=== PATIENT | male | born 1965 | race Caucasian/White ===

== ENCOUNTER → 2023-03-11 08:54 | Outpatient (BNVA) | payer OTHER, SELFPAY | PROVIDERS: PCP Physician Assistant Medical; Visit Provider Nurse Practitioner Family | DX: Z13.89 Encounter for screening for other disorder (principal) ==

== ENCOUNTER 2023-04-11 08:28 | Outpatient (REF) | payer OTHER, SELFPAY ==
--- NOTE | ~2023-04-11 | US_ITS ---
EXAMINATION: US RETROPERITONEAL COMPLETE (RENAL) CLINICAL INFORMATION: Benign prostatic hyperplasia with lower urinary tract symptoms. COMPARISON: None available. TECHNIQUE: Real-time imaging of the kidneys and bladder. FINDINGS: RIGHT KIDNEY: 10.0 x 5.4 x 4.9 cm (SAG x AP x TRV). The kidney is normal in size, contour, and echogenicity. Renal cortical thickness is normal. There are a few small simple appearing cysts of the right kidney for which no follow-up imaging is usually warranted, largest measuring 1.1 cm. There is a 3 mm nonobstructing upper pole calculus. There is no hydronephrosis. LEFT KIDNEY: 10.7 x 5.1 x 4.6 cm (SAG x AP x TRV). The kidney is normal in size, contour, and echogenicity. Renal cortical thickness is normal. 6 mm nonobstructing mid pole calculus. No hydronephrosis. BLADDER: The bladder is well-distended. There is mild bladder wall thickening measuring up to 7 mm, nonspecific. Bilateral ureteral jets are demonstrated. Prevoid bladder volume is 248 mL. Postvoid bladder volume is 47.7 mL. Prostate volume 17 mL. US/US retroperitoneal comp IMPRESSION: 1. Tiny nonobstructing bilateral renal calculi. No hydronephrosis of either kidney. 2. Prominent post void bladder residual of 45 mL. 3. Mild bladder wall thickening measuring up to 7 mm, nonspecific.
[2023-04-11 09:44] LABS: Prostate Specific Antigen 0.97 ng/mL (<0.05-4.0)
== END 2023-04-11 08:29 | disposition home or self-care (01) ==
LOC: HO.US 08:28
PROVIDERS: PCP Physician Assistant Medical; Visit Provider Nurse Practitioner Family
DX: N40.1 Benign prostatic hyperplasia with lower urinary tract symptoms (principal); R39.11 Hesitancy of micturition; N50.819 Testicular pain, unspecified; Z12.5 Encounter for screening for malignant neoplasm of prostate
CPT/HCPCS: 36415; 76770; 84153

== ENCOUNTER → 2023-04-21 08:34 | Outpatient (BNVA) | payer OTHER, SELFPAY | PROVIDERS: PCP Physician Assistant Medical; Visit Provider Nurse Practitioner Family | DX: N40.1 Benign prostatic hyperplasia with lower urinary tract symptoms (principal); N50.819 Testicular pain, unspecified; R39.11 Hesitancy of micturition; N20.0 Calculus of kidney | CPT/HCPCS: 51798 ==

== ENCOUNTER 2024-04-12 07:58 | Outpatient (REF) | payer OTHER, SELFPAY ==
[2024-04-12 11:25] LABS: Prostate Specific Antigen 0.76 ng/mL (<0.05-4.0)
== END 2024-04-12 07:59 | disposition home or self-care (01) ==
LOC: HO.10HDL 07:58
PROVIDERS: Visit Provider Nurse Practitioner Family
DX: N40.1 Benign prostatic hyperplasia with lower urinary tract symptoms (principal); R39.11 Hesitancy of micturition; Z12.5 Encounter for screening for malignant neoplasm of prostate
CPT/HCPCS: 36415; 84153

== ENCOUNTER 2024-04-12 13:31 | Outpatient (REF) | payer OTHER, SELFPAY ==
--- NOTE | ~2024-04-12 | US_ITS ---
EXAMINATION: US RETROPERITONEAL LIMITED (RENAL ONLY) CLINICAL INFORMATION: Calculus of kidney. COMPARISON: Ultrasound retroperitoneal 04/11/2023. TECHNIQUE: Real-time imaging of the kidneys. FINDINGS: RIGHT KIDNEY: 10.9 x 5.4 x 5.1 cm (SAG x AP x TRV). The kidney is normal in size, contour, and echogenicity. Renal cortical thickness is normal. No renal calculi or hydronephrosis. There are parapelvic cysts. Largest measuring 1.2 cm. No follow-up imaging is recommended for simple renal cyst. LEFT KIDNEY: 10.8 x 5.3 x 4.3 cm (SAG x AP x TRV). The kidney is normal in size, contour, and echogenicity. Renal cortical thickness is normal. No focal parenchymal lesions or hydronephrosis. Nonobstructive mid pole stone measuring 0.9 cm. US/US renal BI IMPRESSION: Nonobstructive stone mid pole left kidney measuring 0.9 cm. No hydronephrosis.
== END 2024-04-12 13:32 | disposition home or self-care (01) ==
LOC: HO.US 13:31
PROVIDERS: PCP Physician Assistant Medical; Visit Provider Nurse Practitioner Family
DX: N20.0 Calculus of kidney (principal)
CPT/HCPCS: 76775

== ENCOUNTER 2024-04-17 08:24 | Outpatient (AMB) | payer OTHER, SELFPAY ==
--- NOTE | 2024-04-17 08:34 | MHC.OFFVIS ---
Intake Visit Reasons: 1y/US/labs Intake Note: Patient is present for follow up Bilateral Nephrolithiasis, ultrasound, and PSA lab results Imaging Completed: 04/12/24 PSA: 0.76 Urology Medications: none Blood Thinner: none Smash Fixer Required: No Accompanied by: Self / Same As Patient Allergies bee stings Allergy (Uncoded 04/17/24 23:04) swelling, edema Medication List - Last Reconciled 04/17/24 by ESSIE Chung No Known Home Meds HPI Comments Details: Shoaib is a pleasant 58-year-old male patient of Dr. Delvalle. He has a past medical history of degenerative disc disease, and cervical stenosis of spinal canal. He presents to the office today for follow-up of his nephrolithiasis and renal cyst. Recent renal imaging results reviewed with the patient today. Right kidney with no hydronephrosis or renal calculi. There are simple peripelvic cysts largest measuring approximately 1.2 cm. That require no follow-up imaging per radiology report. Left kidney with no lesions or hydronephrosis. Nonobstructing mid pole stone measuring approximately 0.9 cm. Recent PSA results reviewed with the patient today as noted and trended below. He currently denies any bothersome urinary issues or concerns. He reports right-sided testicular pain he had been experiencing has since subsided as he has been following up with field care coordinator and was noted to have a right-sided hip dislocation and since this has been relocated/addressed he has noted significant improvement in right-sided testicular pain he had been experiencing. In office urinalysis results reviewed with the patient today. PH 5.5. Discussed and stressed the importance of drinking water daily in relation to nephrolithiasis. Discussed further intervention with surveillance monitoring verses KUB for further assessment evaluation of potential ESWL. He otherwise denies urinary urgency, urinary frequency, incontinence, nocturia, hematuria, dysuria, foul smelling urine, changes to urinary stream, flank pain, fever, and or chills. PSA 04/19 1.0, 04/20 0.8 PFSH Medical History DDD (degenerative disc disease), cervical Elevated blood-pressure reading, without diagnosis of hypertension Neuroforaminal stenosis of cervical spine Cervical stenosis of spinal canal Surgical History History of neck surgery Review of Systems Const Reports no additional complaints Eyes Reports no additional complaints ENT Reports no additional complaints Card Reports no additional complaints Resp Reports no additional complaints GI Reports no additional complaints Reports as per HPI Musc Reports as per HPI Neuro Reports no additional complaints Psych Reports no additional complaints Endo Reports no additional complaints Rehan/Lymph Reports no additional complaints Aller/Immun Reports no additional complaints Physical Exam Const General: cooperative, healthy appearing, comfortable, no acute distress, well developed, alert and awake Orientation/consciousness: patient oriented x3 Limitations: no limitations HEENT Head: Yes normal to inspection, Yes normocephalic and Yes atraumatic Ears: hearing grossly normal bilaterally Eyes General: appearance normal, both eyes and all related structures Neck Neck: Yes normal visual inspection and Yes trachea midline Chest Chest palpation & inspection: normal inspection of the chest Resp Effort & Inspection: normal respiratory effort and able to speak in complete sentences Cardio Rate: regular rate GI Inspection: Yes normal to inspection General: Yes no CVA tenderness Back/Spine/Pelvis Back: no CVA tenderness Skin General skin exam: no rashes or lesions noted Neuro General: patient oriented x3 Extrem General: Yes normal to inspection Psych Appearance: grossly normal and well kempt Mental Status: mental status grossly normal Speech and movement: Normal speech and movement present and Clear speech present Affect: normal affect Attitude: cooperative Thought process: Normal thought process present Thought content: Normal thought content present Insight: Good insight present (Psych) Judgement: Good judgement present (Psych) Results AMB Urinalysis, Automated UA Leukoctes 15 Ulysses/uL Last Edit by Ewa Gilliland on 04/17/24 08:52 UA Nitrite Negative Last Edit by [employer] on 04/17/24 08:52 UA Urobilinogen 0.2 mg/dL Last Edit by [employer] on 04/17/24 08:52 UA Protein 15 mg/dL Last Edit by Josey [employer] Gilliland on 04/17/24 08:52 UA pH 5.5 Last Edit by Josey Ellis [employer] Gilliland on 04/17/24 08:52 UA Blood 10 Jonathon/uL Last Edit by [employer] on 04/17/24 08:52 UA Specific [place] 1.025 Last Edit by [employer] on 04/17/24 08:52 UA Ketone Positive Last Edit by [employer] on 04/17/24 08:52 UA Bilirubin 1 mg/dL Last Edit by [employer] on 04/17/24 08:52 UA Glucose 0 mg/dL Last Edit by [employer] on 04/17/24 08:52 Results Reviewed Results Reviewed: Laboratory Last Values Urine pH (Auto) 5.5 04/17/24 08:37 Specific [place] (Auto) 1.025 04/17/24 08:37 Urine Protein (Auto) 15 mg/dL 04/17/24 08:37 Glucose (UA)(Auto) 0 mg/dL 04/17/24 08:37 Urine Ketones (Auto) Positive 04/17/24 08:37 Urine Blood (Auto) 10 Jonathon/uL 04/17/24 08:37 Urine Nitrite (Auto) Negative 04/17/24 08:37 Urine Bilirubin (Auto) 1 mg/dL 04/17/24 08:37 Urine Urobilinogen (Auto) 0.2 mg/dL 04/17/24 08:37 Leukocyte Esterase (Auto) 15 Ulysses/uL 04/17/24 08:37 Date of Service: 04/12/24 FINDINGS: RIGHT KIDNEY: 10.9 x 5.4 x 5.1 cm (SAG x AP x TRV). The kidney is normal in size, contour, and echogenicity. Renal cortical thickness is normal. No renal calculi or hydronephrosis. There are parapelvic cysts. Largest measuring 1.2 cm. No follow-up imaging is recommended for simple renal cyst. LEFT KIDNEY: 10.8 x 5.3 x 4.3 cm (SAG x AP x TRV). The kidney is normal in size, contour, and echogenicity. Renal cortical thickness is normal. No focal parenchymal lesions or hydronephrosis. Nonobstructive mid pole stone measuring 0.9 cm. IMPRESSION: Nonobstructive stone mid pole left kidney measuring 0.9 cm. No hydronephrosis. Assessment & Plan Assessment & Plan (1) Renal cyst: Code(s): N28.1 - Cyst of kidney, acquired Category: Medical (2) Nephrolithiasis: Code(s): N20.0 - Calculus of kidney Category: Medical (3) Bladder wall thickening: Code(s): N32.89 - Other specified disorders of bladder Category: Medical Plan In office urinalysis results reviewed with the patient today; as noted above. Recent PSA results reviewed with the patient today; as noted above. Recent renal imaging results reviewed with the patient today; as noted above. Discussed, educated, and stressed the importance of drinking plenty of water daily. Discussed further metabolic workup with 24 hour urine collection and labs verses surveillance monitoring verses CT KUB for further assessment of potential ESWL; risks and benefits of these interventions were discussed. Patient currently denies any bothersome urinary issues or concerns. He reports be happy with current voiding parameters. Will obtain renal ultrasound in 6 months; will continue with surveillance monitoring at this time per patient request. Follow-up in 6 months with imaging to be completed prior; or sooner with any issues, concerns, and or questions. Orders: Orders AMB Urinalysis Automated 04/17/24 Z13.9 - Encounter for screening, unspecified US renal BI 6 Months N20.0 - Calculus of kidney Patient Instructions: The patient had an opportunity to ask questions regarding the treatment plan. All questions were answered. Physical exam, labs, and imaging were discussed and reviewed in detail. As well as risks, benefits, and discussion of treatment choices. No major barriers to understanding were identified. The patient expressed understanding and agreement with the above treatment plan. The patient was made aware they should contact our office by phone for worsening of their current condition, the appearance of new symptoms, or with any questions or concerns. Compliance is encouraged with any medications and follow up testing that is ordered. It is a privilege to be allowed the opportunity to participate in? your urological care.? Again, if you have any questions or concerns If you have any questions or concerns please do not hesitate to contact me. The office is [phone]. This note is constructed using voice recognition software. While every effort has been made to ensure accuracy liquor clerk errors may have been included. Yours sincerely, ESSIE Chung Coding Level of Care Code Est Pt Level 4 (15089) Diagnoses Renal cyst N28.1 Nephrolithiasis N20.0 Bladder wall thickening N32.89 Time Spent (min) 25
== END 2024-04-17 09:21 | disposition home or self-care (01) ==
PROVIDERS: Visit Provider Nurse Practitioner Family
DX: N28.1 Cyst of kidney, acquired (principal); N20.0 Calculus of kidney; N32.89 Other specified disorders of bladder
CPT/HCPCS: 99214

== ENCOUNTER → 2024-04-17 08:24 | Outpatient (BNVA) | payer OTHER, SELFPAY | PROVIDERS: Visit Provider Nurse Practitioner Family | DX: N28.1 Cyst of kidney, acquired (principal); N20.0 Calculus of kidney; N32.89 Other specified disorders of bladder | CPT/HCPCS: 81003 ==

== ENCOUNTER 2024-10-05 07:56 | Outpatient (REF) | payer OTHER, SELFPAY | END 2024-10-05 07:57 | disposition home or self-care (01) | LOC: HO.US 07:56 | PROVIDERS: PCP Physician Assistant Medical; Visit Provider Nurse Practitioner Family | DX: N20.0 Calculus of kidney (principal) | CPT/HCPCS: 76775 ==

== ENCOUNTER 2024-10-30 07:52 | Outpatient (AMB) | payer OTHER, SELFPAY ==
--- NOTE | 2024-10-30 07:52 | A.OFFVIS_ITS ---
Intake Visit Reasons: 6m/US(set) Intake Note: Patient presents today for follow up on: kidney stone, renal cyst, and ultrasound results Imaging Completed: 10/05/24 Urology Medications: none Blood Thinner: none Wood Tank Erector Required: No Accompanied by: Self / Same As Patient Allergies bee stings Allergy (Uncoded 10/30/24 08:09) swelling, edema Medication List - Last Reconciled 10/30/24 by ESSIE Chung No Known Home Meds HPI Comments Details: Shoaib is a pleasant 59-year-old male patient of Dr. Delvalle. He has a past medical history of degenerative disc disease, and cervical stenosis of spinal canal. He is being followed up on today via telehealth for his nephrol ithiasis and renal cyst. Recent unofficial renal imaging results reviewed with the patient today. Bilateral kidneys with no hydronephrosis. Right kidney with peripelvic cysts largest measuring 1.9 cm in the upper pole. Left kidney with question peripelvic cysts largest measuring 1.4 cm in the upper pole. Left Mid pole nonobstructing renal calculi 0.9 x 0.5 x 1.0 cm. He currently denies any bothersome urinary issues or concerns. He discusses continuing to follow-up with his chiropractor regarding his right hip dislocation. When asked he reports to be drinking plenty of water daily as well as adding 1 oz of lemon juice to water daily. We discussed further treatment options to include surveillance monitoring verses surgical intervention. Risks and benefits of these interventions were discussed. All questions were answered. He otherwise denies urinary urgency, urinary frequency, incontinence, nocturia, hematuria, dysuria, foul smelling urine, changes to urinary stream, flank pain, fever, and or chills. PSA 04/19 1.0, 04/20 0.8 PFSH Medical History DDD (degenerative disc disease), cervical Elevated blood-pressure reading, without diagnosis of hypertension Neuroforaminal stenosis of cervical spine Cervical stenosis of spinal canal Surgical History History of neck surgery Review of Systems Const Reports no additional complaints Eyes Reports no additional complaints ENT Reports no additional complaints Card Reports no additional complaints Resp Reports no additional complaints GI Reports no additional complaints Reports as per HPI Musc Reports as per HPI Neuro Reports no additional complaints Psych Reports no additional complaints Endo Reports no additional complaints Rehan/Lymph Reports no additional complaints Aller/Immun Reports no additional complaints Physical Exam Const General: cooperative Resp Effort & Inspection: able to speak in complete sentences Psych Attitude: cooperative Thought process: Normal thought process present Thought content: Normal thought content present Insight: Fair insight present (Psych) Judgement: Fair judgement present (Psych) Telehealth Telehealth Telehealth Platform: Parachute Location of provider rendering services: practice address Location of patient: address on file Patient Identification confirmed using: Name, : Yes Telehealth method: voice only Patient verbally consented to treatment: Yes Patient verbally consented to billing insurance company: Yes Patient informed of any privacy concerns related to visit: Yes Minutes spent on Phone/Video with Pt.: 15 Assessment & Plan Assessment & Plan (1) Bladder wall thickening: Code(s): N32.89 - Other specified disorders of bladder Category: Medical (2) Nephrolithiasis: Code(s): N20.0 - Calculus of kidney Category: Medical (3) Renal cyst: Code(s): N28.1 - Cyst of kidney, acquired Category: Medical Plan: Plan Extracorporeal Shock Wave Lithotripsy We discussed the nature of the decision and reasonable alternatives for performing the above surgery. Interventions include chemical dissolution, ESWL, ureteroscopy with laser lithotripsy and stent placement, PCNL. ? Options such as medical therapy were discussed. The relative uncertainties and benefits related to each alternate procedure were adequately discussed. General surgical risks including, but not limited to, pain, bleeding, infection, myocardial infarction, pulmonary embolus, deep vein thrombosis and cerebrovascular accident which may result in further hospitalization were discussed.? Full disclosure of the procedure as well as all major risks, benefits and complications were discussed including but not limited to risks of bleeding, injury to the kidney with hematoma or edmond-hematoma, failure to fragments stone, potential for ureteric obstruction from stone passage and need for secondary procedures.? There is a small long-term risk of hypertension and a question twyla of diabetes.? Success rate of fragmentation and passage is approximately 70- 75%.? This is compared to the risks and benefits for ureteroscopy which has a higher success rate but is a more invasive procedure. The success rate of the procedure was discussed. Success of the procedure in the short-term does not necessarily guarantee that long-term success will be maintained. Suitable follow up will need to be maintained. The patient showed understanding of the discussion as well as the typical recovery time, and the outpatient nature of this procedure. Opportunity was given for questions. Repeat-back protocol used to confirm understanding. They wish to proceed with left ESWL Plan Recent unofficial renal imaging results reviewed with the patient today; as noted above. Discussed, educated, and stressed the importance of drinking plenty of water daily. Discussed further intervention to include surveillance monitoring verses left- sided ESWL; risks and benefits of these interventions were discussed Patient currently denies any bothersome urinary issues or concerns. He reports be happy with current voiding parameters. Will schedule for left-sided ESWL. Follow-up per doctor's orders; or sooner with any issues, concerns, and or questions. Patient Instructions: The patient had an opportunity to ask questions regarding the treatment plan. All questions were answered. Physical exam, labs, and imaging were discussed and reviewed in detail. As well as risks, benefits, and discussion of treatment choices. No major barriers to understanding were identified. The patient expressed understanding and agreement with the above treatment plan. The patient was made aware they should contact our office by phone for worsening of their current condition, the appearance of new symptoms, or with any questions or concerns. Compliance is encouraged with any medications and follow up testing that is ordered. It is a privilege to be allowed the opportunity to participate in? your urological care.? Again, if you have any questions or concerns If you have any questions or concerns please do not hesitate to contact me. The office is [phone]. This note is constructed using voice recognition software. While every effort has been made to ensure accuracy rn medical surgical errors may have been included. Yours sincerely, ESSIE Chung Coding Level of Care Code Tele Est Pt Level 4 (54853) Diagnoses Bladder wall thickening N32.89 Nephrolithiasis N20.0 Renal cyst N28.1
== END 2024-10-30 11:20 | disposition home or self-care (01) ==
LOC: HO.HUSH 07:52
PROVIDERS: PCP Physician Assistant Medical; Visit Provider Nurse Practitioner Family
DX: N32.89 Other specified disorders of bladder (principal); N20.0 Calculus of kidney; N28.1 Cyst of kidney, acquired
CPT/HCPCS: 99214

== ENCOUNTER 2025-01-02 06:37 | Day surgery (SDC) | payer OTHER, SELFPAY ==
--- NOTE | ~2025-01-02 | XR_ITS ---
EXAMINATION: XR ABDOMEN KUB CLINICAL INDICATION: pre left ESWL COMPARISON: None available. TECHNIQUE: AP view of the abdomen. FINDINGS: No gross calcifications overlapping the kidney shadow or the bladder shadow. Multilevel thoracolumbar spondylosis with a dextroconvex rotoscoliosis apex at L2-3. No intestinal obstruction pattern. XR/XR KUB IMPRESSION: No nephrolithiasis based upon x-ray. Electronically signed by: Kong Strange MD 01/02/2025 11:47 AM ROMAINE
[2025-01-02 07:19] VITALS: BMI 25.0
[2025-01-02 07:33] VITALS: BP 160/90; PULSE 53; RESP 16; TEMP 36.5; O2SAT 97
[2025-01-02] MEDS: Lactated Ringers 1,000 ML 100 ML IVCONT (07:44)
--- NOTE | 2025-01-02 08:39 | HO.ANESPROP2 ---
Documented by User: Anu Mcbride NP 01/01/25 11:58 HPI - Anesthesia Eval Consult details Narrative: 59yo M for Left Lithotripsy ESW PMFSH Active Problems Active Problems: All Active Problems Bladder wall thickening (Acute) Nephrolithiasis (Acute) Renal cyst (Acute) Testicular pain (Acute) Urinary hesitancy due to benign prostatic hyperplasia (Acute) Past Medical History Medical History (Updated 12/31/24 @ 10:57 by Betsy Martinez RN) Renal cyst Nephrolithiasis DDD (degenerative disc disease), cervical Elevated blood-pressure reading, without diagnosis of hypertension Neuroforaminal stenosis of cervical spine Cervical stenosis of spinal canal Surgical History Surgical History History of neck surgery Social History Social History Patient Tobacco Use Status: Never used Tobacco Use of substances other than those prescribed or required for medical reasons: No Are you DNR?: No Advance Directives: No Advance Directives Information Provided: Yes Recently lost weight without trying: No Nutrition Risks: No Nutritional Risk Poor oral hygiene: No Meds Allergies Allergy/AdvReac Type Severity Reaction Status Date / Time bee pollen [bee stings] Allergy Severe swelling/ed Verified 12/31/24 10:54 kristen Home Medications ?Medication ?Instructions ?Recorded ?Confirmed ?Last Taken ?Type No Known Home Meds 04/21/23 12/31/24 Unknown History Exam Height,Weight and Vital Signs: Height 5 ft 6 in Assessment and Plan Assessment Anesthesia Assessment: Chart Reviewed Documented by User: Manjula Lr DO 01/02/25 08:41 PMFSH Past Medical History Medical History (Updated 12/31/24 @ 10:57 by Betsy Martinez RN) Renal cyst Nephrolithiasis DDD (degenerative disc disease), cervical Elevated blood-pressure reading, without diagnosis of hypertension Neuroforaminal stenosis of cervical spine Cervical stenosis of spinal canal Family History Family history of problems with anesthesia: No Surgical History Surgical History History of neck surgery History of Problems with Anesthesia: No Social History Social History Patient Tobacco Use Status: Never used Tobacco Use of substances other than those prescribed or required for medical reasons: No Are you DNR?: No Advance Directives: No Advance Directives Information Provided: Yes Recently lost weight without trying: No Nutrition Risks: No Nutritional Risk Poor oral hygiene: No Meds Allergies Allergy/AdvReac Type Severity Reaction Status Date / Time bee pollen [bee stings] Allergy Severe swelling/ed Verified 12/31/24 10:54 kristen Home Medications ?Medication ?Instructions ?Recorded ?Confirmed ?Last Taken ?Type No Known Home Meds 04/21/23 12/31/24 Unknown History Exam Exam Date and Time: 01/02/25 0840 Height,Weight and Vital Signs: Height 5 ft 6 in Height 5 ft 6 in Weight 70.4 kg Vital Signs Temperature 97.7 F 01/02/25 07:33 Pulse Rate 53 01/02/25 07:33 Respiratory Rate 16 01/02/25 07:33 Blood Pressure 160/90 H 01/02/25 07:33 Pulse Oximetry 97 01/02/25 07:33 Oxygen Delivery Method Room Air 01/02/25 07:33 Temperature 97.7 F 01/02/25 07:33 Pulse Rate 53 01/02/25 07:33 Respiratory Rate 16 01/02/25 07:33 Blood Pressure 160/90 H 01/02/25 07:33 Pulse Oximetry 97 01/02/25 07:33 Oxygen Delivery Method Room Air 01/02/25 07:33 Airway Mallampati Class: II TM Dist: >3cm Neck ROM: Full Loose/Missing/Broken Teeth: No (patient denies any loose or broken teeth) Heart: S1S2 Lungs: CTAB Assessment and Plan Assessment Anesthesia Assessment: Anesthesia Plan Discussed and Chart Reviewed Final Anesthetic Review Family History of Problems with Anesthesia: No History of Problems with Anesthesia: No NPO: Yes ASA Class: II Final Preanesthetic Review: No Changes in Pt Med Stat, Meds/Allgs Chart Reviewed, Consent Obtained/Reviewed and Anes Risks/Benef Reviewed Patient Risk: Low Procedure Risk: Low Anesthetic Plan Anesthetic Plan: GA and Agree w/ Assess. and Plan Disposition: Standard PACU
--- NOTE | 2025-01-02 09:39 | MHC.SHP ---
Pre-Procedural Eval Section A - 24 Hr Update-Section A only Date of Service: 01/02/25 The patient is an INPATIENT: No The patient has been examined within 24 hours of the surgical procedure. The History & Physical has been completed within 30 days and I have reviewed it.: Yes Section B - Complete if H&P > 30 days Chief Complaint: Calculus of kidney Allergies: Allergies Allergy/AdvReac Type Severity Reaction Status Date / Time bee pollen [bee stings] Allergy Severe swelling/ed Verified 12/31/24 10:54 kristen Plan Diagnosis/Plan: Unchanged I have reviewed the history and physical and performed a pertinent physical examination on my patient. No changes have occurred unless specified. Left ESWL. Discussed risks to include but not limited to, blood in the urine, bruising to the skin, kidney hematoma, possible need for another procedure if a stone fragment obstructs the ureter while passing, possible need to repeat procedure if stone is not completely fragmented. Time Spent With Patient Time: Total time managing care of this patient today ____ minutes.
--- NOTE | 2025-01-02 10:45 | W.PM.OPN ---
Operative Note Operative Note Date of Service: 01/02/25 Narrative: PreOperative Diagnosis:? ? Left Renal stone Post Operative Diagnosis:??Left Renal stone Procedure:?Left? ESWL Surgeon:?Dr Quintin Haji Anesthesia:? General Indications for procedure: The patient understands there is a risk of bruising or hematoma to the kidney, infection, and stone migration following the procedure and subsequent intervention may be required.? - Imaging 9 x 8 mm stone Procedure: After informed consent was verified the patient was brought to the operating room and placed in a supine position.? Anesthesia was performed per protocol. Safety pause time-out was performed. Imaging was displayed in the room and laterality confirmed. ESWL was performed.?The stone was visualized on ultrasound.? Shockwave lithotripsy was performed, with a maximum rate of 120 hertz. After the first 300 shocks a pause for 3 minutes was completed.? A total of 2500 shocks to a maximum of power of 20 with a maximum rate of 120 hertz.? Some fragmentation of the stone was appreciated. The patient tolerated the procedure well and was transferred to the recovery area upon completion. Complications: None
[2025-01-02 10:47] VITALS: BP 109/83; PULSE 72; RESP 18; TEMP 36.4; O2SAT 97
[2025-01-02 10:50] VITALS: BP 110/80; PULSE 66; RESP 18; O2SAT 99
[2025-01-02 10:55] VITALS: BP 114/80; PULSE 65; RESP 18; O2SAT 99
[2025-01-02 11:00] VITALS: BP 134/104; PULSE 63; RESP 18; O2SAT 100
== END 2025-01-02 11:42 | disposition home or self-care (01) ==
PROVIDERS: PCP Physician Assistant Medical; Visit Provider Urology
PROC: (CPT 50590; principal; 2025-01-02 09:30)
DX: N20.0 Calculus of kidney (principal); N28.1 Cyst of kidney, acquired; N32.89 Other specified disorders of bladder; M50.30 Other cervical disc degeneration, unspecified cervical region; M48.02 Spinal stenosis, cervical region; R03.0 Elevated blood-pressure reading, without diagnosis of hypertension; Z98.890 Other specified postprocedural states
CPT/HCPCS: 50590; 74018; J0131; J0690; J1940; J2003; J2704; J3010

== ENCOUNTER → 2025-01-02 08:00 | Outpatient (BNV) | payer OTHER, SELFPAY | PROVIDERS: PCP Physician Assistant Medical; Visit Provider Radiology Diagnostic Radiology | DX: N20.0 Calculus of kidney (principal) | CPT/HCPCS: 74018 ==

== ENCOUNTER 2025-01-17 08:26 | Outpatient (REF) | payer OTHER, SELFPAY ==
--- NOTE | ~2025-01-17 | XR_ITS ---
CLINICAL HISTORY: N28.1 - Cyst of kidney, acquired 1 view abdomen Comparison: CR/SR - XR KUB - 01/02/25 06:51 EST Findings: No pneumoperitoneum or pneumatosis. Small amount of colonic stool. No abnormal calcifications. No acute fractures. IMPRESSION: The bowel gas pattern is within normal limits This document has been electronically signed by: Chase June MD on 01/17/2025 14:59:29
--- OUTSIDE RECORDS SUMMARY | 2025-01-17 08:52 | XMS_ITS | Clinical Summary ---
Author Organization [facility] Address [address] [place] [address] Care Team Providers Care Trucker Name Role Phone Supa Clarke MD Primary Care Provider [phone] Social History Tobacco Use Types Packs/Day Years Used Date Smoking Tobacco: Never Assessed Sex and Gender Information Value Date Recorded Sex Assigned at Not on file Gender Identity Not on file Sexual Orientation Not on file Plan of Treatment Health Maintenance Due Date Last Done Comments Hepatitis B Vaccines (1 of 3 - 3-dose series) 1965 Hepatitis C Screening 1965 COVID-19 Vaccine (#1) 01/25/1966 Depression Screening 1977 Preventative Health Evaluation 1983 Colon Cancer Screening (Colonoscopy) 2010 Shingrix-Zoster Vaccine (1 of 2) 2015 Influenza Vaccine (#1) 2024 DTap / Tdap / Td (2 - Td or Tdap) 07/09/2026 016 Pneumococcal Vaccine Aged Out No long er eligible based on patient's age to complete this topic RSV Ped < 20 months Aged Out No longe r eligible based on patient's age to complete this topic Care Teams Trucker Relationship Specialty Start Date End Date Supa Clarke MD [address] [place] [address] [place] [address] PCP - General Internal Medicine 09/19/20
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
== END 2025-01-17 08:27 | disposition home or self-care (01) ==
LOC: HO.XRAY 08:26
PROVIDERS: PCP Physician Assistant Medical; Visit Provider Urology
DX: N28.1 Cyst of kidney, acquired (principal)
CPT/HCPCS: 74018

== ENCOUNTER → 2025-01-17 08:28 | Outpatient (BNV) | payer OTHER, SELFPAY | PROVIDERS: PCP Physician Assistant Medical; Visit Provider Radiology Diagnostic Radiology | DX: R14.0 Abdominal distension (gaseous) (principal); N28.1 Cyst of kidney, acquired | CPT/HCPCS: 74018 ==

== ENCOUNTER 2025-02-22 11:57 | Outpatient (REF) | payer OTHER, SELFPAY ==
--- NOTE | ~2025-02-22 | US_ITS ---
EXAMINATION: US KIDNEY BILATERAL HISTORY: N20.0 - Calculus of kidney TECHNIQUE: Real-time grayscale ultrasound imaging of the kidneys was performed and images were reviewed. COMPARISON: Comparison is made with the prior examination dated 10/05/2024. FINDINGS: Right kidney: The right kidney measures 10.6 x 6.2 x 5.2 cm. Renal parenchymal echotexture and thickness are normal. There are parapelvic cysts measuring up to 12 mm in size. There is no hydronephrosis or renal calculi. Left Kidney: The left kidney measures 11.2 x 5.2 x 4.3 cm. Renal parenchymal echotexture and thickness are normal. There are parapelvic cysts measuring up to 10 mm in size. There is a nonobstructing calculus in the interpolar region measuring 7 x 5 x 7 mm. There is no hydronephrosis. US/US renal BI IMPRESSION: Bilateral renal parapelvic cysts. 7 x 5 x 7 mm nonobstructing calculus in the interpolar region of the left kidney. Electronically signed by: Bertram Jacob MD 02/22/2025 01:06 PM EDT
== END 2025-02-22 11:58 | disposition home or self-care (01) ==
LOC: HO.US 11:57
PROVIDERS: PCP Physician Assistant Medical; Visit Provider Urology
DX: N20.0 Calculus of kidney (principal)
CPT/HCPCS: 76775

== ENCOUNTER → 2025-02-22 11:59 | Outpatient (BNV) | payer OTHER, SELFPAY | PROVIDERS: PCP Physician Assistant Medical; Visit Provider Radiology Diagnostic Radiology | DX: N28.1 Cyst of kidney, acquired (principal); N20.0 Calculus of kidney | CPT/HCPCS: 76775 ==

== ENCOUNTER 2025-03-04 08:02 | Outpatient (AMB) | payer OTHER, SELFPAY ==
--- OUTSIDE RECORDS SUMMARY | 2025-03-04 08:09 | XMS_ITS | Clinical Summary ---
Author Organization [facility] Address [address] [place] [address] Care Team Providers Care Timber Hand Name Role Phone Иван Delvalle Primary Care Provider [phone] Allergies Active Allergy Reactions Criticality Noted Date [...] Td or Tdap) 07/09/2026 07/09/2016 RSV Immunization Adult Patie nts (1 - 1-dose 75+ series) 2040 Hepatitis [...] Procedure Name Priority Date/Time Associated Diagnosis Comments EXTERNAL XRAY REPORT 01/17/2025 HEPATITIS C SCREENING Routine 07/09/2016 LIPID PANEL Routine 07/09/2016 from Last 3 Months or Most Recently Relevant to Health Maintenance Results * External Xray Report (01/17/2025) Anatomical Region Laterality Modality Radiographic Angela ging us Provider [place] [facility] XR PROCEDURES Final Result * Hepatitis C Screening (07/09/2016) Pathologist [facility] Hepatitis C Screening Abstracted Historical Provider HEALTH MAINTENANCE Final Result * (ABNORMAL) Lipid panel (07/09/2016) LDL/HDL Ratio 2 0 - 4 Triglycerides 86 0 - 150 mg/dL Cholesterol 257(A) 0 - 200 mg/dL HDL 107 >=40 mg/dL LDL Cholesterol 133(A) 0 - 100 mg/dL Blood Venous blood specimen / Unknown Historical Provider LAB BLOOD ORDERABLES Joy l Result from Last 3 Months or Most Recently Relevant to Health Maintenance Care Teams Timber Hand Relationship Specialty Start Date End Date Иван Delvalle PA PCP - General Internal Medicine 11/06/21
--- OUTSIDE RECORDS SUMMARY | 2025-03-04 08:09 | XMS_ITS | Clinical Summary ---
Author Organization [facility] Address [address] [place] [address] Care Team Providers Care Express Clerk Name Role Phone Supa Clarke MD Primary Care Provider [phone] Social History Tobacco Use Types Packs/Day Years [...] age to complete this topic Care Teams Express Clerk Relationship Specialty Start Date End Date Supa Clarke MD [address] [place] [address] [place] [address] PCP - General Internal Medicine 09/19/20
--- NOTE | 2025-03-04 08:29 | A.OFFVIS_ITS ---
Intake Visit Reasons: ESWL- follow up/KUB Intake Note: Patient presents to office today for follow up/ESWL/KUB Urology Medications: none Blood Thinner: none PVR:78ml Dragger Required: No Accompanied by: Self / Same As Patient Allergies bee pollen [bee stings] Allergy (Severe, Verified 03/04/25 08:31) swelling/edema HPI Comments Details: Shoaib is a pleasant 59-year-old male patient of Dr. Delvalle. He has a past medical history of degenerative disc disease, and cervical stenosis of spinal canal. He is being followed up on today via telehealth for his nephrolithiasis and renal cyst. Recent unofficial renal imaging results reviewed with the patient today. Bilateral kidneys with no hydronephrosis. Right kidney with peripelvic cysts largest measuring 1.9 cm in the upper pole. Left kidney with question peripelvic cysts largest measuring 1.4 cm in the upper pole. Left Mid pole nonobstructing renal calculi 0.9 x 0.5 x 1.0 cm. He currently denies any bothersome urinary issues or concerns. He discusses continuing to follow-up with his chiropractor regarding his right hip dislocation. When asked he r eports to be drinking plenty of water daily as well as adding 1 oz of lemon juice to water daily. We discussed further treatment options to include surveillance monitoring verses surgical intervention. Risks and benefits of these interventions were discussed. All questions were answered. He otherwise denies urinary urgency, urinary frequency, incontinence, nocturia, hematuria, dysuria, foul smelling urine, changes to urinary stream, flank pain, fever, and or chills. PSA 04/19 1.0, 04/20 0.8 [facility] Medical History Renal cyst Nephrolithiasis DDD (degenerative disc disease), cervical Elevated blood-pressure reading, without diagnosis of hypertension Neuroforaminal stenosis of cervical spine Cervical stenosis of spinal canal Surgical History History of neck surgery Social History Patient Tobacco Use Status: Never used Tobacco Results AMB Urinalysis, Automated UA Leukoctes 0 Ulysses/uL Last Edit by Vane Butts on 03/04/25 10:13 UA Nitrite Negative Last Edit by Vane Butts on 03/04/25 10:13 UA Urobilinogen 0.2 mg/dL Last Edit by Vane Butts on 03/04/25 10:13 UA Protein 15 mg/dL Last Edit by Vane Butts on 03/04/25 10:13 UA pH 6.0 Last Edit by Vane Butts on 03/04/25 10:13 UA Blood 0 Jonathon/uL Last Edit by Vane Butts on 03/04/25 10:13 UA Specific [place] 1.025 Last Edit by Vane Butts on 03/04/25 10:13 UA Ketone Negative Last Edit by Vane Butts on 03/04/25 10:13 UA Bilirubin 0 mg/dL Last Edit by Vane Butts on 03/04/25 10:13 UA Glucose 0 mg/dL Last Edit by Vane Butts on 03/04/25 10:13 Results Reviewed Results Reviewed: Laboratory Last Values Urine pH (Auto) 6.0 03/04/25 10:09 Specific [place] (Auto) 1.025 03/04/25 10:09 Urine Protein (Auto) 15 mg/dL 03/04/25 10:09 Glucose (UA)(Auto) 0 mg/dL 03/04/25 10:09 Urine Ketones (Auto) Negative 03/04/25 10:09 Urine Blood (Auto) 0 Jonathon/uL 03/04/25 10:09 Urine Nitrite (Auto) Negative 03/04/25 10:09 Urine Bilirubin (Auto) 0 mg/dL 03/04/25 10:09 Urine Urobilinogen (Auto) 0.2 mg/dL 03/04/25 10:09 Leukocyte Esterase (Auto) 0 Ulysses/uL 03/04/25 10:09 Assessment & Plan Assessment & Plan (1) Low energy: Code(s): R53.83 - Other fatigue Category: Medical (2) Nephrolithiasis: Code(s): N20.0 - Calculus of kidney Category: Medical Orders: Orders Testosterone, Free/Total Today R53.83 - Other fatigue CT kidney stone Today N20.0 - Calculus of kidney AMB Urinalysis Automated Today Z13.9 - Encounter for screening, unspecified Coding Diagnoses Low energy R53.83 Nephrolithiasis N20.0
== END 2025-03-04 08:57 | disposition home or self-care (01) ==
LOC: HO.HUSH 08:02
PROVIDERS: PCP Physician Assistant Medical; Visit Provider Urology
DX: Z13.9 Encounter for screening, unspecified (principal)

== ENCOUNTER → 2025-03-04 08:02 | Outpatient (BNVA) | payer OTHER, SELFPAY | PROVIDERS: PCP Physician Assistant Medical; Visit Provider Urology | DX: R53.83 Other fatigue (principal); N20.0 Calculus of kidney | CPT/HCPCS: 81003 ==

== ENCOUNTER 2025-04-01 14:04 | Outpatient (AMB) | payer OTHER, SELFPAY ==
--- NOTE | 2025-04-01 14:07 | A.OFFPC_ITS ---
Vital Signs 04/01/25 14:25 Height 5 ft 5.16 in Weight 154 lb 6 oz BMI 25.6 BP 126/64 Blood Pressure Location Rt brachial Position Sitting Respiration 12 Pulse 66 Pulse Source Pulse Oximeter Temp 98.3 F Temp Source Oral Pulse Oximetry (%) 96 Oxygen Delivery Method Room Air Intake Visit Reasons: POLITICAL AIDE Appt Intake Note: New patient visit Industrial Machine Operator Required: No Allergies bee pollen [bee stings] Allergy (Severe, Verified 04/01/25 14:08) swelling/edema bee stings Allergy (Severe, Uncoded 04/01/25 14:23) Swelling Tobacco use date assessed: 04/01/25 Dental Screening Dental Screen Date: 04/01/25 Did you have a dental visit in the last 12 months?: Yes Did you have a dental problem in the last 6 months where you did not have access to dental care?: No Was dental information given to patient?: Patient has dentist HPI HPI Comments History of Present Illness Details 59 year old male with a past medical his tory of ddd, cervical stenosis, nephrolithiasis, renal cysts, hip pain presenting to [facility]. Transferring from [facility], [facility]. Previously saw me at [place] years ago. Urology: Following with urology at [facility] [place]. Recent ESWL-may have repeat. PSA normal MSK: History of severe cervical stenosis s/p surgery Dr Patel 2020 Colonoscopy: Has not had colon cancer screening. Cologuard ordered. ROS CONSTITUTIONAL: Denies weight loss, fever and chills. HEENT: Denies changes in vision and hearing. RESPIRATORY: Denies SOB and cough. CV: Denies palpitations and CP GI: Denies abdominal pain, nausea, vomiting and diarrhea. : Denies dysuria and urinary frequency. MSK: Denies new myalgia and joint pain. SKIN: Denies rash and pruritus. NEUROLOGICAL: Denies headache PSYCHIATRIC: Denies recent changes in mood. PHYSICAL EXAM: GENERAL: Alert and oriented x 3. NAD EYES: EOMI. Anicteric. HENT: Moist mucous membranes. No scleral icterus. No cervical lymphadenopathy. LUNGS: Clear to auscultation bilaterally. CARDIOVASCULAR: Regular rate and rhythm. No murmur. No JVD. ABDOMEN: Soft, non-tender +bs EXTREMITIES: No edema. Non-tender. SKIN: No rashes or lesions. Warm. NEUROLOGIC: No focal neurological deficits. CN II-XII grossly intact PSYCHIATRIC: Cooperative. Appropriate mood and affect [facility] Medical History Renal cyst Nephrolithiasis DDD (degenerative disc disease), cervical Elevated blood-pressure reading, without diagnosis of hypertension Neuroforaminal stenosis of cervical spine Cervical stenosis of spinal canal Surgical History History of neck surgery Social History Housing: House Alcohol intake: current Patient Tobacco Use Status: Former Tobacco user Years Smoked: 0.5 yeasrs started at 16 years. 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 1. Little interest or pleasure in doing things: not at all 2. Feeling down, depressed, or hopeless: not at all 3. Trouble falling or staying asleep, or sleeping too much: not at all 4. Feeling tired or having little energy: not at all 5. Poor appetite or overeating: not at all 6. Feeling bad about yourself - or that you are a failure or have let yourself or your family down: not at all 7. Trouble concentrating on things, such as reading the newspaper or watching t elevision: not at all 8. Moving or speaking so slowly that other people could have noticed. Or the opposite - being so fidgety or restless that you have been moving around a lot more than usual: not at all 9. Thoughts that you would be better off or of hurting yourself in some way: not at all Total score: 0 Depression Screening Interpretation: Negative Depression Screening Done: Yes 69447 - PHQ-9 Billing: Yes Source: Developed by Drs. Bertram Roberts, Ana Lara, Tito Martinez and colleagues, with an educational fernando from [employer]. Thrive Questionnaire Date Thrive assessed: 04/01/25 I am a: Patient What is your living situation today?: I have a steady place to live Within the past 12 months, did the food you bought not last and you didn't have the money to get more?: Never true Within the past 12 months, did you worry whether your food would run out before you got money to buy more?: Never true Do you have trouble paying for medicines?: No Do you have trouble getting transportation to medical appointments?: No Do you have trouble paying your heating and electricity bill?: No Do you have trouble taking care of your child, family member or friend?: No Do you have trouble with day-to-day activities such as bathing, preparing meals, shopping, managing finances, etc.?: No Are you currently unemployed and looking for a job?: No Are you interested in more education?: No Please select the resources that you would like help with: None Currently or been in a relationship where the following occur: No concerns reported THRIVE Score: 0 AUDIT C Alcohol Use Questionnaire (AUDIT-C) 1. How often do you have a drink containing alcohol?: 2-4 times a month 2. How many drinks containing alcohol do you have on a typical day when you are drinking?: 1 or 2 3. How often do you have six or more drinks on one occasion?: Never Total Score: 2 TRISTA-7 AMB Questionnaire TRISTA-7 Date TRISTA - 7 assessed: 04/01/25 Feeling nervous, anxious, or on edge: 0 = Not at all Not being able to stop or control worryin = Not at all Worrying too much about different things: 0 = Not at all Trouble relaxin = Not at all Being so restless that it is hard to sit still: 0 = Not at all Becoming easily annoyed or irritable: 0 = Not at all Feeling afraid as if something awful might happen: 0 = Not at all Total TRISTA-7 score (0-4 normal; 5-9 mild; 10-14 moderate; 15-21 severe): 0 Source: Developed by Drs. Bertram Roberts, Ana Lara, Tito Martinez and colleagues, with an educational fernando from [employer]. TRISTA-7 Assessment Billing TRISTA-7 Assessment Tool: TRISTA-7 Assessment 58511 Physical exam (Primary Care) Vital Signs: Last Vital Signs Temp 98.3 F 04/01/25 14:25 Pulse 66 04/01/25 14:25 Resp 12 04/01/25 14:25 BP 126/64 04/01/25 14:25 Pulse Ox 96 04/01/25 14:25 Oxygen Delivery Method Room Air 04/01/25 14:25 BMI result Body Mass Index 25.6 Tobacco/Smoking Status: Tobacco use Status Tobacco use date assessed 04/01/25 04/01/25 14:08 Patient Tobacco Use Status Former Tobacco user 04/01/25 14:30 e-Cigarette/Vaping Use Never Used 04/01/25 14:30 PHQ-9: PHQ-9 Score PHQ-9: Total score 0 04/01/25 18:19 Depression Screening Interpretation: Negative Thrive Assessment: Date of Thrive Assessment Date Thrive assessed 04/01/25 04/01/25 14:30 Currently or been in a relationship where the following occur: No concerns reported Coding Level of Care Code New Pt Level 4 (44484) Diagnoses DDD (degenerative disc disease), cervical M50.30 Nephrolithiasis N20.0 Additional Codes TRISTA-7 Assessment Billing - TRISTA-7 Assessment Tool: TRISTA-7 Assessment 21722 ([id number]) PHQ-9 - 13676 - PHQ-9 Billing: Yes ([id number]) Assessment & Plan Assessment & Plan (1) DDD (degenerative disc disease), cervical: Code(s): M50.30 - Other cervical disc degeneration, unspecified cervical region Category: Medical (2) Nephrolithiasis: Code(s): N20.0 - Calculus of kidney Category: Medical Plan 59 year old to reestablish care. Past medical, surgical, social, family history reviewed. Neck pain-resolved Due for labs, colon cancer screening. Orders: Orders Comprehensive Met. Panel 04/01/25 N20.0 - Calculus of kidney, Z13.0 - Encounter for screening for diseases of the blood and blood-forming organs and certain disorders involving the immune mechanism, Z13.228 - Encounter for screening for other metabolic disorders Lipid Panel 04/01/25 M50.30 - Other cervical disc degeneration, unspecified cervical region, N20.0 - Calculus of kidney, R53.83 - Other fatigue, Z13.0 - Encounter for screening for diseases of the blood and blood-forming organs and certain disorders involving the immune mechanism, Z13.228 - Encounter for screening for other metabolic disorders Complete Blood Count Auto Diff 04/01/25 Z13.0 - Encounter for screening for diseases of the blood and blood-forming organs and certain disorders involving the immune mechanism Referrals 2 Cologuard Test Z12.11 - Encounter for screening for malignant neoplasm of colon, Z12.12 - Encounter for screening for malignant neoplasm of rectum
[2025-04-01 14:25] VITALS: BP 126/64; PULSE 66; RESP 12; TEMP 36.8; O2SAT 96; BMI 25.6
--- OUTSIDE RECORDS SUMMARY | 2025-04-01 15:38 | XMS_ITS | Clinical Summary ---
Author Organization [facility] Address [address] [place] [address] Care Team Providers Care Director Internal Control Name Role Phone Иван Delvalle Primary Care Provider +1 [phone] Allergies Active Allergy Reactions Criticality Noted Date [...] - 2023-2 5 season) 2024 Influenza Vaccine (Season Ended) 2025 DTaP,Tdap,and Td Vaccines (2 - Td or [...] age to complete this topic Meningococcal B Vaccine Aged Out No l onger eligible based on patient's age to complete [...] Laterality Modality Radiographic Angela ging us Provider [facility] IMG XR PROCEDURES Final Result * Hepatitis C Screening (07/09/2016) Pathologist [facility]ly [facility], 1928–1983 Hepatitis C Screening Abstracted Historical Provider HEALTH [...] Recently Relevant to Health Maintenance Care Teams Director Internal Control Relationship Specialty Start Date End Date Иван Delvalle PA PCP - General Internal Medicine 11/06/21
--- OUTSIDE RECORDS SUMMARY | 2025-04-01 15:38 | XMS_ITS | Clinical Summary ---
Author Organization [facility] Address [address] [place] [address] Care Team Providers Care Clarity Developer Name Role Phone Supa Clarke MD Primary Care Provider +1- [phone] Social History Tobacco Use Types Packs/Day Years [...] age to complete this topic Care Teams Clarity Developer Relationship Specialty Start Date End Date Supa Clarke MD [address] [place] [address] [place] [address] PCP - General Internal Medicine 09/19/20
== END 2025-04-01 14:49 | disposition home or self-care (01) ==
LOC: HO.HMCFM 14:04
PROVIDERS: PCP Internal Medicine; Visit Provider Internal Medicine
DX: M50.30 Other cervical disc degeneration, unspecified cervical region (principal); N20.0 Calculus of kidney

== ENCOUNTER → 2025-04-01 14:04 | Outpatient (BNVA) | payer OTHER, SELFPAY | PROVIDERS: PCP Internal Medicine; Visit Provider Internal Medicine | DX: M50.30 Other cervical disc degeneration, unspecified cervical region (principal); N28.1 Cyst of kidney, acquired; N20.0 Calculus of kidney; R53.83 Other fatigue | CPT/HCPCS: 96127 ==

== ENCOUNTER 2025-04-19 07:13 | Outpatient (REF) | payer OTHER, SELFPAY ==
--- NOTE | ~2025-04-19 | CT_ITS ---
CLINICAL HISTORY: N20.0 - Calculus of kidney CT abdomen and pelvis without contrast Comparison: CR/SR - XR KUB - 01/17/25 08:42 EST Findings: Examination is limited by without contrast. Lung bases are clear. No pleural effusion. Liver, Pancreas, Spleen and both adrenals show normal size, shape and attenuation on present unenhanced scan. No CBD dilatation. No calcified gallstone in the gallbladder. Both kidneys reveal normal in size, shape, position and attenuation. 2.5 mm stone in the left renal pelvis. No hydronephrosis. The IVC, aorta and portal vein are within normal position and caliber. No evidence of retroperitoneal lymphadenopathy or ascites. The visible parts of the bowel loops show no obvious mass lesions or wall thickening. No evidence of acute appendicitis. Urinary bladder reveals normal lumen and adams. The pelvic organs are unremarkable. Degenerative changes of the lumbar spine. IMPRESSION: Small nonobstructing left kidney stone. This document has been electronically signed by: Nneka Horn MD on 04/19/2025 14:23:13
== END 2025-04-19 07:14 | disposition home or self-care (01) ==
LOC: HO.CT 07:13
PROVIDERS: PCP Internal Medicine; Visit Provider Urology
DX: N20.0 Calculus of kidney (principal)
CPT/HCPCS: 74176

== ENCOUNTER → 2025-04-19 07:19 | Outpatient (BNV) | payer OTHER, SELFPAY | PROVIDERS: PCP Internal Medicine; Visit Provider Nuclear Medicine | DX: N20.0 Calculus of kidney (principal) | CPT/HCPCS: 74176 ==

== ENCOUNTER 2025-05-13 15:27 | Outpatient (AMB) | payer OTHER, SELFPAY ==
--- NOTE | 2025-05-13 15:31 | A.OFFVIS_ITS ---
Intake Visit Reasons: CT results Intake Note: Patient presents to office today for CT results * Abdomen & Pelvis CT 04/19/25 Urology Medications: none Blood Thinner: none Antibiotic Allergy:None PVR:40ml School Supervisor Required: No Accompanied by: Self / Same As Patient Allergies bee pollen [bee stings] Allergy (Severe, Verified 05/13/25 15:33) swelling/edema bee stings Allergy (Severe, Uncoded 04/01/25 14:23) Swelling HPI Comments Details: 05/13/25-- History of Present Illness - The patient is a 59-year-old male presenting with concerns about degenerative changes of the lumbar spine and a remaining kidney stone. - The patient has a history of degenerative changes in the lumbar spine, confirmed by imaging studies. - The patient reports having undergone spinal fusion from T2 to T1, with pins and plates in place. - The patient has experienced dislocation of the hip and pelvis three times, managed by a chiropractor. - The patient has a remaining 2.5 mm kidney stone, identified during a recent CAT scan. - The patient underwent lithotripsy for kidney stones, deemed successful. - The patient has not yet completed lab work for testosterone levels and PSA testing, previously ordered. Urinary Symptoms Review Results - CAT scan: Remaining 2.5 mm kidney stone, degenerative changes of the lumbar spine Discussion Notes The CAT scan results were reviewed, showing a remaining 2.5 mm kidney stone and degenerative changes in the lumbar spine. The patient was advised to complete lab work for testosterone levels and PSA testing, which are important for assessing prostate health. It was recommended that the patient avoid sexual activity for 48 hours prior to the PSA test to ensure accurate results. Follow- up will be conducted via phone call to discuss the lab results once available. Plan - The patient will complete lab work for testosterone levels and PSA testing to assess prostate health. - The patient is advised to avoid sexual activity for 48 hours prior to the PSA test. - Follow-up will be conducted via phone call to discuss lab results once available. Patient Instructions - Complete lab work for testosterone levels and PSA testing. - Avoid sexual activity for 48 hours before the PSA test. - Expect a follow-up phone call to discuss lab results. Patient was informed and verbally consented to the use of an ambient scribe for clinic note documentation during this visit. 03/04/25--Shoaib is a pleasant 59-year-old male patient of Dr. Delvalle. He has a past medical history of degenerative disc disease, and cervical stenosis of spinal canal. Status post left ESWL for left renal stone 9 x 8 mm on 01/02/2025. He is being followed up on today via telehealth for his nephrolithiasis and renal cyst. Recent unofficial renal imaging results 02/22/25 reviewed with the patient today. Bilateral kidneys with no hydronephrosis. Right kidney with peripelvic cysts largest measuring 1.9 cm in the upper pole. Left kidney with question peripelvic cysts largest measuring 1.4 cm in the upper pole. Left Mid pole nonobstructing renal calculi 7 mm. Previous KUB on 12/2024 no abnormal calcifications were visualized. I have discussed that there is discrepancy in KUB and renal ultrasound finding. I want to further evaluate with CT kidney stone protocol. Also discussed follow-up to include 24 hour urine collection based on CT findings he may require a repeat left ESWL. We discussed further treatment options to include surveillance monitoring verses surgical intervention. Risks and benefits of these interventions were discussed. All questions were answered. He currently denies any bothersome urinary issues or concerns. When asked he reports to be drinking plenty of water daily as well as adding lemon juice to water daily. He otherwise denies urinary urgency, urinary frequency, incontinence, nocturia, hematuria, dysuria, foul smelling urine, changes to urinary stream, flank pain, fever, and or chills. He complains fatigue and some erectile changes. I will check a testosterone level. [facility] Medical History Renal cyst Nephrolithiasis DDD (degenerative disc disease), cervical Elevated blood-pressure reading, without diagnosis of hypertension Neuroforaminal stenosis of cervical spine Cervical stenosis of spinal canal Surgical History History of neck surgery Social History Housing: House Alcohol intake: current Patient Tobacco Use Status: Former Tobacco user Years Smoked: 0.5 yeasrs started at 16 years. e-Cigarette/Vaping Use: Never Used Second Hand Smoke Exposure: No service: No Current occupational status: employed Current occupation: Sm[employer] P[employer] Current occupational exposures/hazards: Yes Cognitive needs: No Hearing needs: No Vision needs: Yes (near sighted ) Office Procedures Post Void Residual Post Residual Void Post Void Residual (PVR): 40 [id number] Void Residual by ultrasound Results AMB Urinalysis, Automated UA Leukoctes 0 Ulysses/uL Last Edit by Vane Butts on 05/13/25 16:26 UA Nitrite Negative Last Edit by Vane Codytiz on 05/13/25 16:26 UA Urobilinogen 3.5 mg/dL Last Edit by Vane Codytiz on 05/13/25 16:26 UA Protein 1 mg/dL Last Edit by Vane Butts on 05/13/25 16:26 UA pH 6.0 Last Edit by Vane Butts on 05/13/25 16:26 UA Blood 0 Jonathon/uL Last Edit by Vane Butts on 05/13/25 16:26 UA Specific [place] 1.015 Last Edit by Vane Codytiz on 05/13/25 16:26 UA Ketone Positive Last Edit by Vane Codytiz on 05/13/25 16:26 UA Bilirubin 0 mg/dL Last Edit by Vane Codytiz on 05/13/25 16:26 UA Glucose 0 mg/dL Last Edit by Vane Codytiz on 05/13/25 16:26 Assessment & Plan Assessment & Plan (1) Screening PSA (prostate specific antigen): Code(s): Z12.5 - Encounter for screening for malignant neoplasm of prostate Category: Medical (2) Low energy: Code(s): R53.83 - Other fatigue Category: Medical (3) Nephrolithiasis: Code(s): N20.0 - Calculus of kidney Category: Medical Orders: Orders PSA,Total (Free>4and<10) Today Z12.5 - Encounter for screening for malignant neoplasm of prostate AMB Post Void Residual by ultrasound Today N40.1 - Benign prostatic hyperplasia with lower urinary tract symptoms, R39.11 - Hesitancy of micturition AMB Urinalysis Automated Today Z13.9 - Encounter for screening, unspecified Scribe Plan - Not visible on output: Patient was informed and verbally consented to the use of an ambient scribe for clinic note documentation during this visit. Coding Diagnoses Screening PSA (prostate specific antigen) Z12.5 Low energy R53.83 Nephrolithiasis N20.0 CPT Codes Post Residual Void - PVR CPT Code: [id number] Void Residual by ultrasound ([id number])
--- OUTSIDE RECORDS SUMMARY | 2025-05-13 17:21 | XMS_ITS | Clinical Summary ---
Author Organization [facility] Address [address] [place] [address] Care Team Providers Care Rural Carrier Name Role Phone Иван Delvalle Primary Care Provider +1 -[phone] Allergies Active Allergy Reactions Criticality Noted Date [...] Recently Relevant to Health Maintenance Care Teams Rural Carrier Relationship Specialty Start Date End Date Иван Delvalle PA PCP - General Internal Medicine 11/06/21
== END 2025-05-13 16:14 | disposition home or self-care (01) ==
LOC: HO.HUSH 15:27
PROVIDERS: PCP Internal Medicine; Visit Provider Urology
DX: Z13.9 Encounter for screening, unspecified (principal)

== ENCOUNTER → 2025-05-13 15:27 | Outpatient (BNVA) | payer OTHER, SELFPAY | PROVIDERS: PCP Internal Medicine; Visit Provider Urology | DX: N20.1 Calculus of ureter (principal); R39.11 Hesitancy of micturition | CPT/HCPCS: 51798; 81003 ==

== ENCOUNTER 2025-07-26 09:53 | Outpatient (REF) | payer OTHER, SELFPAY ==
--- OUTSIDE RECORDS SUMMARY | 2025-07-26 10:40 | XMS_ITS | Clinical Summary ---
Author Organization [facility] Address [address] [place] [address] Care Team Providers Care Terrazzo Roller Name Role Phone Supa Clarke MD Primary Care Provider +1- [phone] Social History Tobacco Use Types Packs/Day Years [...] (1 of 2) 2015 Influenza Vaccine (#1) 2025 DTap / Tdap / Td (2 - Td or Tdap) 07/09/2026 016 Pneumococcal Vaccine Aged Out No long er eligible based on patient's age to complete this topic RSV Ped < 20 months Aged Out No longe r eligible based on patient's age to complete this topic Care Teams Terrazzo Roller Relationship Specialty Start Date End Date Supa Clarke MD [address] [place] [address] [place] [address] PCP - General Internal Medicine 09/19/20
--- OUTSIDE RECORDS SUMMARY | 2025-07-26 10:40 | XMS_ITS ---
Author Name [facility] Organization Unknown Care Team Organization Name Specialty Phone Email Start Date End Da te [facility] 10/05/2022 4
--- OUTSIDE RECORDS SUMMARY | 2025-07-26 10:40 | XMS_ITS | Clinical Summary ---
Author Organization [facility] Address [address] [place] [address] Care Team Providers Care Balloon Pilot Name Role Phone Иван Delvalle Primary Care Provider Un available Allergies Active Allergy Reactions Criticality Noted Date [...] 10/30/2022 07/09/2016 Colorectal Cancer Screening: Colonoscopy 10/30/2022 HIV Screening 10/30/2022 Social Influencers of Health Screening 10/30/2022 COVID-19 Vaccine ( - 2023-2 5 season) 2024 Depression Screening 11/28/2024 Influenza Vaccine (#1) 2025 DTaP,Tdap,and Td Vaccines (2 - Td [...] Procedure Name Priority Date/Time Associated Diagnosis Comments HM HEPATITIS C SCREENING Routine 07/09/2016 LIPID PANEL [...] Recently Relevant to Health Maintenance Care Teams Balloon Pilot Relationship Specialty Start Date End Date Иван Delvalle PA PCP - General Internal Medicine 11/06/21
[2025-07-26 11:39] LABS: MANUAL DIFF FLAG NO
[2025-07-26 12:02] LABS: Hematocrit 47.4 % (42.0-52.0); Hemoglobin 16.0 g/dl (14.0-18.0); Imm Gran Abs Auto 0.03 X10*3/uL (0.00-0.03); Imm Gran Pct Auto 0.6 % (0.0-0.4); Lymphocytes Absolute Auto 1.2 X10*3/uL (1.2-4.9); Mean Corpuscular HGB Conc 33.8 g/dl (31.0-36.0); Mean Corpuscular Hemoglobin 31.9 pg (27.0-33.0); Mean Corpuscular Volume 94.4 fL (80.0-98.0); NRBC Abs Auto 0.000 X10*3/uL (0.0-0.012); NRBC Pct Auto 0.0 /100WBC (0.0-0.2); Platelet Count 284 X10*3/uL (160-400); Red Blood Count 5.02 X10*6/uL (4.60-5.80); White Blood Count 4.6 X10*3/uL (4.8-10.8)
[2025-07-26 15:05] LABS: Alanine Aminotransferase 33 U/L (0-40); Albumin Level 4.4 g/dL (3.5-5.0); Alkaline Phosphatase 66 U/L (39-117); Anion Gap 15 (12-20); Aspartate Amino Transferase 35 U/L (5-37); Blood Urea Nitrogen 16 mg/dL (9-16); Calcium 9.3 mg/dL (8.4-10.2); Carbon Dioxide 25 mmol/L (22-29); Chloride 104 mmol/L (96-108); Cholesterol 252 mg/dL (<200); Estimated Glomerular Filt Rate > 60; HDL Cholesterol 77 mg/dL (>40); Potassium 4.5 mmol/L (3.3-5.1); Sodium 139 mmol/L (135-145); Total Protein 7.2 g/dL (6.5-8.0); Triglycerides 56 mg/dL (<150)
[2025-07-26 15:23] LABS: PSA,Total (Free>4and<10) 0.54 ng/mL (0.00-4.00)
[2025-08-01 16:58] LABS: Testosterone, Free 66.1 pg/mL (35.0-155.0)
== END 2025-07-26 09:54 | disposition home or self-care (01) ==
LOC: HO.WFDLDS 09:53
PROVIDERS: Internal Medicine; Visit Provider Urology
DX: Z12.5 Encounter for screening for malignant neoplasm of prostate (principal); Z13.228 Encounter for screening for other metabolic disorders; Z13.0 Encounter for screening for diseases of the blood and blood-forming organs and certain disorders involving the immune mechanism; N20.0 Calculus of kidney; M50.30 Other cervical disc degeneration, unspecified cervical region; R53.83 Other fatigue; Z13.6 Encounter for screening for cardiovascular disorders
CPT/HCPCS: 36415; 80053; 80061; 84153; 84402; 84403; 85025

== ENCOUNTER 2025-08-08 07:24 | Outpatient (AMB) | payer OTHER, SELFPAY ==
--- NOTE | 2025-08-08 07:25 | MHC.OFFVIS ---
Intake Visit Reasons: PSA f/u Intake Note: Patient presents to office today for follow up Labs done 07/26/2025 PSA : 0.54 Urology Medications: none Blood Thinner: none Antibiotic Allergy:None LAST PVR:40ml Waiter/Waitress Cabin Class Required: No Accompanied by: Self / Same As Patient Allergies bee pollen (bee stings) Allergy (Severe, Verified 08/08/25 07:26) swelling/edema bee stings Allergy (Severe, Uncoded 04/01/25 14:23) Swelling HPI Comments Details: 08/08/25--Shoaib is a 60-year-old male who is followed for kidney stones. Telehealth follow-up to review lab work including PSA and testosterone levels. I have reviewed blood work 07/26/2025--a PSA 0.54, total testosterone 472. History of Present Illness The patient is a 60-year-old male presenting for follow-up on kidney stone The patient reports no visible blood in the urine currently, Previously, imaging had revealed a small kidney stone fragment, which is being monitored. Results - Labs: PSA level at 0.54 (normal range: 0-4) - Labs: Testosterone level at 472 (normal range: 250-1000) Plan--follow-up 1 year renal ultrasound. PSA screening 05/13/25-- History of Present Illness - The patient is a 59-year-old male presenting FU kidney stone. - The patient has a history of degenerative changes in the lumbar spine, confirmed by imaging studies. - The patient reports having undergone spinal fusion from T2 to T1, with pins and plates in place. - The patient has experienced dislocation of the hip and pelvis three times, managed by a chiropractor. - The patient has a remaining 2.5 mm kidney stone, identified during a recent CAT scan. - The patient underwent lithotripsy for kidney stones, with small fragment remaining - The patient has not yet completed lab work for testosterone levels and PSA testing, previously ordered. Results - CAT scan: Remaining 2.5 mm kidney stone, degenerative changes of the lumbar spine Plan - The patient will complete lab work for testosterone levels and PSA testing to assess prostate health. - The patient is advised to avoid sexual activity for 48 hours prior to the PSA test. - Telehealth Follow-up to discuss lab results once available. 03/04/25--Shoaib is a pleasant 59-year-old male patient of Dr. Delvalle. He has a past medical history of degenerative disc disease, and cervical stenosis of spinal canal. Status post left ESWL for left renal stone 9 x 8 mm on 01/02/2025. He is being followed up on today via telehealth for his nephrolithiasis and renal cyst. Recent unofficial renal imaging results 02/22/25 reviewed with the patient today. Bilateral kidneys with no hydronephrosis. Right kidney with peripelvic cysts largest measuring 1.9 cm in the upper pole. Left kidney with question peripelvic cysts largest measuring 1.4 cm in the upper pole. Left Mid pole nonobstructing renal calculi 7 mm. Previous KUB on 12/2024 no abnormal calcifications were visualized. I have discussed that there is discrepancy in KUB and renal ultrasound finding. I want to further evaluate with CT kidney stone protocol. Also discussed follow-up to include 24 hour urine collection based on CT findings he may require a repeat left ESWL. We discussed further treatment options to include surveillance monitoring verses surgical intervention. Risks and benefits of these interventions were discussed. All questions were answered. He currently denies any bothersome urinary issues or concerns. When asked he reports to be drinking plenty of water daily as well as adding lemon juice to water daily. He otherwise denies urinary urgency, urinary frequency, incontinence, nocturia, hematuria, dysuria, foul smelling urine, changes to urinary stream, flank pain, fever, and or chills. He complains fatigue and some erectile changes. I will check a testosterone level. [facility] Medical History Renal cyst Nephrolithiasis DDD (degenerative disc disease), cervical Elevated blood-pressure reading, without diagnosis of hypertension Neuroforaminal stenosis of cervical spine Cervical stenosis of spinal canal Surgical History History of neck surgery Social History Housing: House Alcohol intake: current Patient Tobacco Use Status: Former Tobacco user Years Smoked: 0.5 yeasrs started at 16 years. e-Cigarette/Vaping Use: Never Used Second Hand Smoke Exposure: No service: No Current occupational status: employed Current occupation: [employer] Current occupational exposures/hazards: Yes Cognitive needs: No Hearing needs: No Vision needs: Yes (near sighted ) Review of Systems Const All systems reviewed & are unremarkable except as noted in HPI and below Reports no additional complaints Eyes Reports no additional complaints ENT Reports no additional complaints Card Reports no additional complaints Resp Reports no additional complaints GI Reports no additional complaints Reports as per HPI Musc Reports no additional complaints Skin/Breast Reports system reviewed and no additional complaints, except as documented Neuro Reports no additional complaints Psych Reports no additional complaints Endo Reports no additional complaints Rehan/Lymph Reports no additional complaints Aller/Immun Reports no additional complaints Telehealth Telehealth Telehealth Platform: [employer] Location of provider rendering services: practice address Location of patient: address on file Patient Identification confirmed using: Name, : Yes Telehealth method: voice only Patient verbally consented to treatment: Yes Patient verbally consented to billing insurance company: Yes Patient informed of any privacy concerns related to visit: Yes Minutes spent on Phone/Video with Pt.: 15 Results Reviewed Results Reviewed: Date of Service: 04/19/25 CLINICAL HISTORY: N20.0 - Calculus of kidney CT abdomen and pelvis without contrast Comparison: CR/SR - XR KUB - 01/17/25 08:42 EST Findings: Examination is limited by without contrast. Lung bases are clear. No pleural effusion. Liver, Pancreas, Spleen and both adrenals show normal size, shape and attenuation on present unenhanced scan. No CBD dilatation. No calcified gallstone in the gallbladder. Both kidneys reveal normal in size, shape, position and attenuation. 2.5 mm stone in the left renal pelvis. No hydronephrosis. The IVC, aorta and portal vein are within normal position and caliber. No evidence of retroperitoneal lymphadenopathy or ascites. The visible parts of the bowel loops show no obvious mass lesions or wall thickening. No evidence of acute appendicitis. Urinary bladder reveals normal lumen and adams. The pelvic organs are unremarkable. Degenerative changes of the lumbar spine. IMPRESSION: Small nonobstructing left kidney stone. Date of Service: 04/12/24 FINDINGS: RIGHT KIDNEY: 10.9 x 5.4 x 5.1 cm (SAG x AP x TRV). The kidney is normal in size, contour, and echogenicity. Renal cortical thickness is normal. No renal calculi or hydronephrosis. There are parapelvic cysts. Largest measuring 1.2 cm. No follow-up imaging is recommended for simple renal cyst. LEFT KIDNEY: 10.8 x 5.3 x 4.3 cm (SAG x AP x TRV). The kidney is normal in size, contour, and echogenicity. Renal cortical thickness is normal. No focal parenchymal lesions or hydronephrosis. Nonobstructive mid pole stone measuring 0.9 cm. IMPRESSION: Nonobstructive stone mid pole left kidney measuring 0.9 cm. No hydronephrosis. Assessment & Plan Assessment & Plan (1) Screening PSA (prostate specific antigen): Code(s): Z12.5 - Encounter for screening for malignant neoplasm of prostate Category: Medical (2) Low energy: Code(s): R53.83 - Other fatigue Category: Medical (3) Nephrolithiasis: Code(s): N20.0 - Calculus of kidney Category: Medical Plan Plan--follow-up 1 year renal ultrasound. PSA screening Review testosterone levels within normal limits Orders: Orders US renal BI 11 Months N20.0 - Calculus of kidney PSA,Total (Free>4and<10) 11 Months Z12.5 - Encounter for screening for malignant neoplasm of prostate Patient Instructions: The patient had an opportunity to ask questions regarding treatment plan. The patient expressed understanding and agreement with the above treatment plan. The patient is aware they should contact our office by phone for worsening of their current condition or the appearance of new symptoms. Compliance is encouraged with any medications and followup testing that is ordered. It is a privilege to be allowed the opportunity to participate in the urologic care of your patient. If you have any questions or concerns regarding treatment for the above conditions please do not hesitate to contact me. The office telephone contact is [phone]. This note is constructed in part using voice recognition software. While every effort has been made to ensure accuracy looping inspector errors may have been included. Yours sincerely, Quintin Haji MD Scribe Plan - Not visible on output: Patient was informed and verbally consented to the use of an ambient scribe for clinic note documentation during this visit. Coding Level of Care Code Tele Est Pt Level 3 (58105) Complex EM visit Add On G2211 Diagnoses Screening PSA (prostate specific antigen) Z12.5 Low energy R53.83 Nephrolithiasis N20.0
--- OUTSIDE RECORDS SUMMARY | 2025-08-08 07:26 | XMS_ITS | Clinical Summary ---
Author Organization [facility] Address [address] [place] [address] Care Team Providers Care Button Bradder Name Role Phone Иван Delvalle Primary Care Provider +1 -[phone] Allergies Active Allergy Reactions Criticality Noted Date [...] Health Maintenance Due Date Last Done Comments Pneumococcal Vaccine: 50+ Ye ars (1 of 1 - PCV) 2015 Zoster Vaccines (1 of 2) 2015 Cholesterol Screening (Lipid Panel) 10/30/2022 07/09/2016 Colorectal Cancer Screening: Colonoscopy 10/30/2022 HIV Screening 10/30/2022 Social Influencers of Health Screening 10/30/2022 Depression Screening 11/28/2024 COVID-19 Vaccine (1 - 2023-2 5 season) 2025 Influenza Vaccine (#1) 2025 DTaP,Tdap,and Td Vaccines [...] patient's age to complete this topic Hepatitis B Vaccines Aged Out No long er eligible [...] Recently Relevant to Health Maintenance Care Teams Button Bradder Relationship Specialty Start Date End Date Иван Delvalle PA PCP - General Internal Medicine 11/06/21
--- OUTSIDE RECORDS SUMMARY | 2025-08-08 07:26 | XMS_ITS | Clinical Summary ---
Author Organization [facility] Address [address] [place] [address] Care Team Providers Care Black Off Worker Name Role Phone Supa Clarke MD Primary Care Provider +1- [phone] Social History Tobacco Use Types Packs/Day Years Used Date Smoking Tobacco: Never Assessed Sex and Gender Information Value Date Recorded Sex Assigned at Not on file Gender Identity Not on file Sexual Orientation Not on file Plan of Treatment Health Maintenance Due Date Last Done Comments Hepatitis C Screening 1965 COVID-19 Vaccine (#1) 01/25/1966 Depression Screening 1977 Preventative Health Evaluation 1983 Colon Cancer Screening (Colonoscopy) 2010 Shingrix-Zoster Vaccine (1 of 2) 2015 Influenza Vaccine (#1) 2025 DTap / Tdap / Td (2 - Td or Tdap) 07/09/2026 016 RSV Adult > 60+ Yrs or Pregn ant (1 - 1-dose 75+ series) 2040 Hepatitis B Vaccines Aged Out No long er eligible based on patient's age to complete this topic Pneumococcal Vaccine Aged Out No long er eligible based on patient's age to complete this topic RSV Ped < 20 months Aged Out No longe r eligible based on patient's age to complete this topic Care Teams Black Off Worker Relationship Specialty Start Date End Date Supa Clarke MD [address] [place] [address] [place] [address] PCP - General Internal Medicine 09/19/20
== END 2025-08-08 09:15 | disposition home or self-care (01) ==
LOC: HO.HUSH 07:24
PROVIDERS: PCP Internal Medicine; Visit Provider Urology
DX: Z12.5 Encounter for screening for malignant neoplasm of prostate (principal); R53.83 Other fatigue; N20.0 Calculus of kidney
CPT/HCPCS: 99213; G2211